=== PATIENT | male | born 1980 | race Hispanic/Latino ===

== ENCOUNTER 2021-10-08 10:22 | Emergency (ER) | payer OTHER ==
[~2021-10-08] VITALS: Ht 167.6 cm; Wt 108.9 kg
[2021-10-08 10:24] VITALS: BP 127/94
[2021-10-08] MEDS ORDERED: ORPHENADRINE CITRATE 30 MG/ML ML IM ONE (13:00)
[2021-10-08] MEDS ORDERED: KETOROLAC 30MG VIAL (30MG/ML) IM ONE (13:00)
[2021-10-08] MEDS ORDERED: IBUP-2070 PO (13:03)
[2021-10-08] MEDS ORDERED: ORPH-43 PO (13:03)
== END 2021-10-08 13:50 | disposition home or self-care (01) ==
LOC: EDH 10:22
DX: S29.011A Strain of muscle and tendon of front wall of thorax, initial encounter (principal); Z79.1 Long term (current) use of non-steroidal anti-inflammatories (NSAID); X58.XXXA Exposure to other specified factors, initial encounter; Y93.89 Activity, other specified; Y92.89 Other specified places as the place of occurrence of the external cause; Y99.8 Other external cause status
CPT/HCPCS: 96372 ×2; 99284; J1885; J2360